=== PATIENT | male | born 1960 | race American Indian/Alaskan Native ===

== ENCOUNTER 2019-04-27 08:40 | Inpatient (IN) | payer MEDICARE ==
[2019-04-27] MEDS ORDERED: ASPIRIN PO ONE (08:47)
[2019-04-27 09:21] LABS: Basophils # (Auto) 0.1 K/mm3 (0.0-0.1); Basophils % (Auto) 0.9 % (0.0-1.8); Eosinophils # (Auto) 0.2 K/mm3 (0.0-0.4); Eosinophils % (Auto) 2.7 % (0.0-4.3); Hematocrit 39.5 % (35.5-45.6); Hemoglobin 13.5 gm/dl (11.8-15.2); Lymphocytes # (Auto) 1.9 K/mm3 (1.2-5.4); Lymphocytes % (Auto) 33.2 % (13.4-35.0); Mean Corpuscular HGB Conc 34 % (32-34); Mean Corpuscular Volume 99 fl (84-94); Monocytes # (Auto) 0.6 K/mm3 (0.0-0.8); Monocytes % (Auto) 11.4 % (0.0-7.3); Platelet Count 198 K/mm3 (140-440); Red Blood Count 4.01 M/mm3 (3.65-5.03); Red Cell Distribution Width 14.3 % (13.2-15.2)
[2019-04-27 09:38] LABS: BUN/Creatinine Ratio 12; Blood Urea Nitrogen 13 mg/dL (9-20); Calcium 9.3 mg/dL (8.4-10.2); Hemolysis Index 10
--- NOTE | 2019-04-27 10:32 | XRay Report ---
PROCEDURE: XR CHEST 1V AP TECHNIQUE: Chest, one view HISTORY: Chest Pain COMPARISON: 07/12/2018 FINDINGS: The heart size is normal. There is no pulmonary vascular congestion seen. Mediastinal contours are normal. Lungs are clear. There is no pleural effusion seen. There is no pneumothorax seen. IMPRESSION: No acute abnormality identified. This document is electronically signed by Ilana Camp MD., April 27 2019 10:30:49 AM ET
[2019-04-27] MEDS ORDERED: NITRO-BID 2% TP ONE (10:42)
[2019-04-27] MEDS ORDERED: ZOFRAN IV ONE (10:42)
[2019-04-27] MEDS ORDERED: SUBLIMAZE IV ONE (10:42)
[2019-04-27] MEDS ORDERED: CATAPRES PO ONE (10:45)
--- NOTE | 2019-04-27 10:48 | Emergency Department Report ---
HPI - General Chief Complaint: Chest Pain Time Seen by Provider: 04/27/19 10:32 - HPI HPI: Room 6 The patient is a 59-year-old male presenting with chief complaint of chest pain. The patient states for the past 2-3 days he's had intermittent left-sided chest pain described as sharp in nature. The patient states he has shortness of breath associated with this chest pain but denies nausea/vomiting or diaphoresis. The patient states last night at approximately 23:00 he also developed numbness of the left upper extremity and left lower extremity. Patient denies weakness. Patient currently gets this chest pain score of 7/10. Patient has a history of coronary artery disease and had cardiac stents placed in 2012 and 2017. Location: [See above] Duration: [See above] Quality: [See above] Severity: [See above] Modifying factors: [see above] Context: [see above] Mode of transportation: [not driving] ED Past Medical Hx - Past Medical History Hx Hypertension: Yes Hx Heart Attack/AMI: Yes Additional medical history: Elevated cholesterol - Surgical History Hx Coronary Stent: Yes (2012, 2017) - Family History Family history: no significant - Social History Smoking Status: Current Some Day Smoker (cigars) Substance Use Type: Alcohol, Marijuana - Medications Home Medications: Home Medications Medication Instructions Recorded Confirmed Last Taken Type ALBUTEROL Inhaler (OR & NICU) 2 puff IH QID PRN #1 inhalation 05/07/07/11/18 Unknown Rx [ProAir HFA Inhaler] Furosemide [Lasix TAB] 20 mg PO QDAY #14 tablet 05/07/16 07/11/18 Unknown Rx Nicotine [Habitrol] 14 mg TD QDAY #30 patch 05/07/16 07/11/18 Unknown Rx Aspirin EC 81 mg PO QDAY #30 tablet. 07/13/18 Unknown Rx AtorvaSTATin [Lipitor] 40 mg PO QHS #30 tablet 07/13/18 Unknown Rx Carvedilol [Coreg] 3.125 mg PO BID #60 tablet 07/13/18 Unknown Rx Clopidogrel [Plavix] 75 mg PO QDAY #30 tablet 07/13/18 Unknown Rx Famotidine [Pepcid] 20 mg PO BID #60 tablet 07/13/18 Unknown Rx Lisinopril [Zestril TAB] 10 mg PO BID #60 tablet 07/13/18 Unknown Rx amLODIPine [Norvasc] 5 mg PO QDAY #30 tablet 07/13/18 Unknown Rx ED Review of Systems ROS: Stated complaint: CHEST PAIN Other details as noted in HPI Constitutional: denies: diaphoresis Eyes: denies: eye pain ENT: denies: throat pain Respiratory: shortness of breath Cardiovascular: chest pain Endocrine: no symptoms reported Gastrointestinal: denies: nausea, vomiting Genitourinary: denies: dysuria Musculoskeletal: denies: back pain Neurological: paresthesias. denies: headache Physical Exam - Physical Exam Vital Signs: Vital Signs 04/27/19 04/27/19 08:42 10:00 Temperature 98.3 F 98.6 F Pulse Rate 78 57 L Respiratory 22 18 Rate Blood Pressure 194/111 Blood Pressure 165/103 [Right] O2 Sat by Pulse 98 Oximetry Physical Exam: GENERAL: The patient is well-developed well-nourished male lying on stretcher not appearing to be in acute distress. [] HEENT: Normocephalic. Atraumatic. Extraocular motions are intact. Patient has moist mucous membranes. NECK: Supple. Trachea midline CHEST/LUNGS: Clear to auscultation. There is no respiratory distress noted. HEART/CARDIOVASCULAR: Regular. There is no tachycardia. There is no gallop rub or murmur. ABDOMEN: Abdomen is soft, nontender. Patient has normal bowel sounds. There is no abdominal distention. SKIN: There is no rash. There is no edema. There is no diaphoresis. NEURO: The patient is awake, alert, and oriented. The patient is cooperative. Cranial nerves II through XII grossly intact. Left lower extremity drifts and under 5 seconds but does not touch the bed. The patient has normal speech MUSCULOSKELETAL: There is no evidence of acute injury. NIHSS= 2 LOC a. Alert= 0 Not alert but arousable to minor stimuli=1 Not alert requires repeated or strong stimuli to move= 2 Responds only reflex motor or unresponsive=3 b. asks month and age answers both correctly= 0 answers one correctly= 1 answers neither correctly= 2 Best Gaze normal= 0 abnormal in one or both but forced deviation or total paresis absent= 1 forced deviation or total gaze paresis= 2 Visual no visual loss= 0 partial hemianopia= 1 complete hemianopia= 2 bilateral hemianopia= 3 Facial Palsy normal= 0 minor paralysis= 1 partial paralysis= 2 complete paralysis= 3 Motor Arm no drift= 0 drift before 10 secs but doesnt hit bed= 1 some effort against gravity= 2 no effort against gravity= 3 no movement= 4 Motor leg no drift= 0 (+)drift before 5 secs but doesnt hit bed= 1 drifts to bed before 5 secs= 2 no effort against gravity= 3 no movement= 4 Limb ataxia absent=0 present in one limb= 1 present in two limbs= 2 Sensory normal= 0 (+)mild sensory loss= 1 severe (unaware of being touched)= 2 Best language mild/some loss of fluency= 1 severe= 2 mute= 3 Dysarthria normal= 0 slurs some words= 1 severe/unintelligible= 2 Extinction and Inattention no abnormality= 0 visual, tactile, auditory or personal inattention= 1 profound (doesnt recognize own hand or orients to only one side= 2 ED Course Vital Signs 04/27/19 04/27/19 08:42 10:00 Temperature 98.3 F 98.6 F Pulse Rate 78 57 L Respiratory 22 18 Rate Blood Pressure 194/111 Blood Pressure 165/103 [Right] O2 Sat by Pulse 98 Oximetry ED Medical Decision Making - Lab Data Result diagrams: 04/27/19 08:56 04/27/19 08:56 Laboratory Tests 04/27/19 04/27/19 08:56 08:56 WBC 5.6 RBC 4.01 Hgb 13.5 Hct 39.5 MCV 99 H MCH 34 H MCHC 34 RDW 14.3 Plt Count 198 Lymph % (Auto) 33.2 Heard % (Auto) 11.4 H Eos % (Auto) 2.7 Baso % (Auto) 0.9 Lymph # 1.9 Heard # 0.6 Eos # 0.2 Baso # 0.1 Seg Neutrophils % 51.8 Seg Neutrophils # 2.9 Sodium 141 Potassium 4.3 Chloride 105.8 Carbon Dioxide 26 Anion Gap 14 BUN 13 Creatinine 1.1 Estimated GFR > 60 BUN/Creatinine Ratio 12 Glucose 87 Calcium 9.3 Troponin T < 0.010 - EKG Data -: EKG Interpreted by Al EKG shows normal: sinus rhythm Rate: normal - EKG Data When compared to previous EKG there are: changes noted Interpretation: nonspecific ST-T wave amira (T-wave inversions in leads 2, 3, aVF, biphasic T-wave in lead V6) - Radiology Data Radiology results: report reviewed (chest x-ray, CT chest, CT head), image reviewed (chest x-ray, CT head, CT chest) interpreted by me: Chest x-ray-no focal infiltrates, no pneumothorax [address] [address] XRay Report Signed Patient: SARA LUZ III MR#: [id number] : 1960 Acct:[id number] Age/Sex: 59 / M ADM Date: 04/27/19 Loc: ED Attending Dr: Ordering Physician: GENI DILLARD MD Date of Service: 04/27/19 Pro cedure(s): XR chest 1V ap Accession Number(s): [id number] cc: GENI DILLARD MD Fluoro Time In Minutes: PROCEDURE: XR CHEST 1V AP TECHNIQUE: Chest, one view HISTORY: Chest Pain COMPARISON: 07/12/2018 FINDINGS: The heart size is normal. There is no pulmonary vascular congestion seen. Mediastinal contours are normal. Lungs are clear. There is no pleural effusion seen. There is no pneumothorax seen. IMPRESSION: No acute abnormality identified. This document is electronically signed by Ilana Camp MD., April 27 2019 10:30:49 AM ET Transcribed By: [facility] Dictated By: ILANA CAMP MD Electronically Authenticated By: ILANA CAMP MD Signed Date/Time: 04/27/191031 DD/ 7 TD/TT: 04/27/[address] [address] Cat Scan Report Signed Patient: SARA LUZ III MR#: [id number] : 1960 Acct:[id number] Age/Sex: 59 / M ADM Date: 04/27/19 Loc: ED Attending Dr: Ordering Physician: GENI DILLARD MD Date of Service: 04/27/19 Procedure(s): CT angio chest Accession Number(s): [id number] cc: GENI DILLARD MD PROCEDURE: CT ANGIO CHEST TECHNIQUE: Computerized tomographic angiography of the chest was performed after the IV injection of iodinated nonionic contrast including image processing. The image data was postprocessed using 2-dimensional multiplanar reformatted (MPR) and 3-dimensional (MIP and/or volume rendered) techniques. Automated exposure control, adjustment of mA and/or kV according to patient size, or iterative reconstruction dose optimization techniques were utilized. HISTORY: chest pain with left-sided numbness FINDINGS: Contrast- enhanced CT angiography of the chest was performed following the intravenous administration of iodinated contrast. Sagittal and coronal MIP three-dimensional reformatted images were generated. These images demonstrate no CT evidence of pulmonary thromboembolic disease. There is no aortic dissection. The ascending thoracic aorta is mildly dilated at 3.8 cm. There is COPD. There is no consolidative pulmonary infiltrate. There is no pleural or pericardial effusion. There is a left renal cyst 2.5 cm. There is a left adrenal nodule, 0.9 cm, likely adenoma. The gallbladder is unremarkable. IMPRESSION: No CT evidence of pulmonary thromboembolic disease All CT scans at this location are performed using dose modulation techniques as appropriate to a performed exam including the following: automated exposure control, adjustment of the mA and/or kV according to patient size (this includes techniques or standardized protocols for targeted exams where dose is matched to indication/reason for exam, i.e.extremities or head; use of imaging [id number] This document is electronically signed by Shaun Kincaid MD., April 27 2019 12:22:52 PM ET Transcribed By: MANJINDER Dictated By: SHAUN KINCAID MD Electronically Authenticated By: SHAUN KINCAID MD Signed Date/Time: 04/27/19 1224 DD/ 25 TD/TT: 04/27/[address] [address] Cat Scan Report Signed Patient: SARA LUZ III MR#: [id number] : 0 1960 Acct:[id number] Age/Sex: 59 / M ADM Date: 04/27/19 Loc: ED Attending Dr: Ordering Physician: GENI DILLARD MD Date of Service: 04/27/19 Procedure(s): CT head/brain wo con Accession Number(s): [id number] cc: GENI DILLARD MD PROCEDURE: CT HEAD/BRAIN WO CON TECHNIQUE: Computerized tomography of the head was performed without contrast material. CT DOSE LENGTH PRODUCT: 1048.3 mGycm HISTORY: left-sided numbness COMPARISONS: None . FINDINGS: Unenhanced CT of the brain was performed and demonstrates no acute intracranial hemorrhage, extra- axial fluid collection, midline shift or mass effect. The ventricles and basal cisterns are not effaced. No acute infarct is seen. MRI may be considered if patient has persistent symptomatology. The mastoid air cells and middle ears appear clear. There is no evidence of acute sinusitis. IMPRESSION: No acute intracranial hemorrhage All CT scans at this location are performed using dose modulation techniques as appropriate to a performed exam including the following: automated exposure control, adjustment of the mA and/or kV according to patient size (this includes techniques or standardized protocols for targeted exams where dose is matched to indication/reason for exam, i.e.extremities or head; use of imaging [id number] This document is electronically signed by Shaun Kincaid MD., April 27 2019 12:24:54 PM ET Transcribed By: MANJINDER Dictated By: SHAUN KINCAID MD Electronically Authenticated By: SHAUN KINCAID MD Signed Date/Time: 04/27/19 1226 DD/ 1126 TD/TT: 04/27/19 1127 - Differential Diagnosis ACS, pericarditis, PE, aortic dissection, CVA, hypertensive urgency Critical care attestation.: If time is entered above; I have spent that time in minutes in the direct care of this critically ill patient, excluding procedure time. ED Disposition Clinical Impression: Chest pain, Hypertensive urgency Disposition: -09 OP ADMIT IP TO THIS HOSP Is pt being admited?: Yes Does the pt Need Aspirin: Yes Condition: Fair Instructions: Chest Pain (ED) Referrals: CORNELIA TOBIAS MD [Primary Care Provider] - 3-5 Days Time of Disposition: 13:05 (hospitalist paged (Dr Owens))
--- NOTE | 2019-04-27 12:24 | Cat Scan Report ---
PROCEDURE: CT ANGIO CHEST TECHNIQUE: Computerized tomographic angiography of the chest was performed after the IV injection of iodinated nonionic contrast including image processing. The image data was postprocessed using 2-di mensional multiplanar reformatted (MPR) and 3-dimensional (MIP and/or volume rendered) techniques. Au tomated exposure control, adjustment of mA and/or kV according to patient size, or iterative reconstr uction dose optimization techniques were utilized. HISTORY: chest pain with left-sided numbness FINDINGS: Contrast-enhanced CT angiography of the chest was performed following the intravenous admin istration of iodinated contrast. Sagittal and coronal MIP three-dimensional reformatted images were g enerated. These images demonstrate no CT evidence of pulmonary thromboembolic disease. There is no aortic disse ction. The ascending thoracic aorta is mildly dilated at 3.8 cm. There is COPD. There is no consolidative pulmonary infiltrate. There is no pleural or pericardial eff usion. There is a left renal cyst 2.5 cm. There is a left adrenal nodule, 0.9 cm, likely adenoma. The gallbladder is unremarkable. IMPRESSION: No CT evidence of pulmonary thromboembolic disease All CT scans at this location are performed using dose modulation techniques as appropriate to a perf ormed exam including the following: automated exposure control, adjustment of the mA and/or kV accord ing to patient size (this includes techniques or standardized protocols for targeted exams where dose is matched to indication/reason for exam, i.e.extremities or head; use of imaging [id number] This document is electronically signed by Shaun Kincaid MD., April 27 2019 12:22:52 PM ET
--- NOTE | 2019-04-27 12:26 | Cat Scan Report ---
PROCEDURE: CT HEAD/BRAIN WO CON TECHNIQUE: Computerized tomography of the head was performed without contrast material. CT DOSE LENGTH PRODUCT: 1048.3 mGycm HISTORY: left-sided numbness COMPARISONS: None . FINDINGS: Unenhanced CT of the brain was performed and demonstrates no acute intracranial hemorrhage, extra-axial fluid collection, midline shift or mass effect. The ventricles and basal cisterns are no t effaced. No acute infarct is seen. MRI may be considered if patient has persistent symptomatology. The mastoid air cells and middle ears appear clear. There is no evidence of acute sinusitis. IMPRESSION: No acute intracranial hemorrhage All CT scans at this location are performed using dose modulation techniques as appropriate to a perf ormed exam including the following: automated exposure control, adjustment of the mA and/or kV accord ing to patient size (this includes techniques or standardized protocols for targeted exams where dose is matched to indication/reason for exam, i.e.extremities or head; use of imaging [id number] This document is electronically signed by Shaun Kincaid MD., April 27 2019 12:24:54 PM ET
--- NOTE | 2019-04-27 13:08 | History and Physical Report ---
History of Present Illness Chief complaint: My chest keeps hurting History of present illness: 59 YO Male with HTN, HLD, [place], CAD S/P Stent Placement presents to ED for evaluation. Pt states that he has experienced pain in his chest over the past 3 days with worsening symptoms over the past 2 days with increased frequency over the same time frame. Pain initially lasted for several seconds, but now lasts up to 5 minutes in duration. Pt states that pain is 7/10, substernal, sharp, intermittent in nature, radiating to the left arm, not worsened with exertion, not relieved with rest. Pt acknowledges shortness of breath, decreased exercise tolerance, dypsnea with exertion, as well as diaphoresis. Pt transported to [facility] via private vehicle. Pt seen and evaluated in ED and found to have Angina, as well as symptoms consistent with CHF Decompensation. Pt admitted to telemetry and initiated on Chest pain protocol. Cardiology consulted in ED. No prior admission for review. All listed medication reconciled at time of admission. Pt denies fever, chills, palpitations, NVD, Trauma, BRBPR, Productive cough, skin rash, unilateral leg swelling, calf pain, individual/family history of DVT/PE/ Blood Clotting Disorder. Past History Past Medical History: acute FL, CAD, hypertension, hyperlipidemia Past Surgical History: Other (Cardiac stent placement.) Social history: . denies: smoking, alcohol abuse Family history: CAD, hypertension Medications and Allergies Allergies Allergy/AdvReac Type Severity Reaction Status Date / Time No Known Allergies Allergy Verified 04/27/19 08:41 Home Medications Medication Instructions Recorded Confirmed Last Taken Type ALBUTEROL Inhaler (OR & NICU) 2 puff IH QID PRN #1 inhalation 05/07/16 04/27/19 2 Weeks Ago Rx [ProAir HFA Inhaler] ~04/13/19 Furosemide [Lasix TAB] 20 mg PO QDAY #14 tablet 05/07/16 04/27/19 2 Weeks Ago Rx ~04/13/19 Nicotine [Habitrol] 14 mg TD QDAY #30 patch 05/07/16 04/27/19 2 Weeks Ago Rx ~04/13/19 10 mg Aspirin EC 81 mg PO QDAY #30 tablet. 07/13/18 04/27/19 2 Weeks Ago Rx ~04/13/19 AtorvaSTATin [Lipitor] 40 mg PO QHS #30 tablet 07/13/18 04/27/19 2 Weeks Ago Rx ~04/13/19 Carvedilol [Coreg] 3.125 mg PO BID #60 tablet 07/13/18 04/27/19 2 Weeks Ago Rx ~04/13/19 Clopidogrel [Plavix] 75 mg PO QDAY #30 tablet 07/13/18 04/27/19 2 Weeks Ago Rx ~04/13/19 Famotidine [Pepcid] 20 mg PO BID #60 tablet 07/13/18 04/27/19 2 Weeks Ago Rx ~04/13/19 Lisinopril [Zestril TAB] 10 mg PO BID #60 tablet 07/13/18 04/27/19 2 Weeks Ago Rx ~04/13/19 amLODIPine [Norvasc] 5 mg PO QDAY #30 tablet 07/13/18 04/27/19 2 Weeks Ago Rx ~04/13/19 Review of Systems Constitutional: no weight loss, no weight gain, no fever, no chills Ears, nose, mouth and throat: no ear pain, no ear discharge, no decreased hearing, no nose pain, no nasal discharge, no sinus pressure Cardiovascular: chest pain, shortness of breath, dyspnea on exertion, decreased exercise tolerance, no rapid/irregular heart beat, no edema, no syncope Respiratory: no cough, no cough with sputum, no excessive sputum, no hemoptysis Gastrointestinal: no nausea, no vomiting, no diarrhea, no constipation Genitourinary Male: no hematuria, no flank pain, no discharge, no urinary frequency, no urinary hesitancy Rectal: no pain, no incontinence, no bleeding Musculoskeletal: no neck stiffness, no neck pain, no shooting arm pain, no arm numbness/tingling, no low back pain, no shooting leg pain, no leg n umbness/tingling Integumentary: no rash, no pruritis, no redness, no sores, no wounds, no jaundice Neurological: no transient paralysis, no paralysis, no weakness, no parathesias, no numbness, no tingling, no seizures Psychiatric: no anxiety, no memory loss, no sleep disturbances, no hypersomnia, no change in appetite, no change in libido, no suicidal ideation, no disorientation Endocrine: no cold intolerance, no heat intolerance, no polyphagia, no excessive thirst, no polydipsia Hematologic/Lymphatic: no easy bruising, no easy bleeding, no lymphadenopathy, no lymphedema Allergic/Immunologic: no urticaria, no allergic rhinitis, no persistent infections, no anaphylaxis Exam - Constitutional Vitals: Temp Pulse Resp BP Pulse Ox 98.6 F 59 L 18 147/80 100 04/27/19 10:00 04/27/19 13:04 04/27/19 13:04 04/27/19 13:04 04/27/19 13:04 General appearance: Present: mild distress - EENT Eyes: Present: PERRL ENT: hearing intact, clear oral mucosa - Neck Neck: Present: supple, normal ROM - Respiratory Respiratory effort: normal Respiratory: bilateral: CTA - Cardiovascular Heart Sounds: Present: S1 & S2. Absent: rub, click - Extremities Extremities: pulses symmetrical, No edema Peripheral Pulses: within normal limits - Abdominal General gastrointestinal: Present: soft, non-tender, non-distended, normal bowel sounds Male genitourinary: Present: normal - Integumentary Integumentary: Present: clear, warm, dry - Musculoskeletal Musculoskeletal: gait normal, strength equal bilaterally - Psychiatric Psychiatric: appropriate mood/affect, intact judgment & insight - Neurologic Neurologic: CNII-XII intact, moves all extremities Results - Labs CBC & Chem 7: 04/27/19 08:56 04/27/19 08:56 Labs: Abnormal lab results 04/27/19 Range/Units 08:56 MCV 99 H (84-94) fl MCH 34 H (28-32) pg Mitchell % (Auto) 11.4 H (0.0-7.3) % Assessment and Plan - Patient Problems (1) Diastolic CHF Current Visit: Yes Status: Acute Qualifiers: Heart failure chronicity: acute Qualified Code(s): I50.31 - Acute diastolic (congestive) heart failure Plan to address problem: Admit to telemetry, echo, cardiology consulted in ED, strict I/O, daily weight, diuresis, monitor uop q shift, afterload reduction, BNP, supplemental oxygen, pulse oximetry. (2) Angina at rest Current Visit: Yes Status: Suspected Plan to address problem: Admit to telemetry, Echo, BNP, cardiology consulted in ED, Echo, strict I/O, daily weight, thyroid panel, magnesium, stress test, d dimer, chest x ray, blood pressure control. (3) HTN (hypertension) Current Visit: Yes Status: Acute Qualifiers: Hypertension type: essential hypertension Qualified Code(s): I10 - Essential (primary) hypertension Plan to address problem: monitor bp q shift, (4) HLD (hyperlipidemia) Current Visit: Yes Status: Acute Qualifiers: Hyperlipidemia type: mixed hyperlipidemia Qualified Code(s): E78.2 - Mixed hyperlipidemia Plan to address problem: statin therpay, lipid panel, low cholesterol diet. risk factor reduction. (5) CAD (coronary artery disease) Current Visit: Yes Status: Acute Qualifiers: Associated angina: with stable angina Plan to address problem: lipid panel, statin therapy, low cholesterol diet, risk factor reduction, DAPT (6) DVT prophylaxis Current Visit: Yes Status: Acute Plan to address problem: SCD to BLE while in bed, patient ambulating
[2019-04-27] MEDS ORDERED: BABY ASPIRIN PO STA (13:23)
[2019-04-27] MEDS ORDERED: ZOFRAN IV PRN (14:00)
[2019-04-27] MEDS ORDERED: SODIUM CHLORIDE FLUSH SYRINGE 10 ML IV PRN ×2 (14:00)
[2019-04-27] MEDS ORDERED: TYLENOL PO PRN (14:00)
[2019-04-27] MEDS ORDERED: PROVENTIL IH PRN (14:00)
[2019-04-27] MEDS ORDERED: NITROSTAT SL PRN (14:00)
[2019-04-27] MEDS ORDERED: MORPHINE IV PRN (14:00)
[2019-04-27] MEDS: HABITROL TD SCH (14:47)
[2019-04-27] MEDS: SODIUM CHLORIDE FLUSH SYRINGE 10 ML IV SCH (21:25)
[2019-04-27] MEDS: ZESTRIL PO SCH (21:25)
[2019-04-27] MEDS: COREG PO SCH (21:25)
[2019-04-27] MEDS: PEPCID PO SCH (21:25)
[2019-04-27] MEDS ORDERED: PEPCID PO SCH (22:00)
--- NOTE | 2019-04-28 11:31 | Event Note ---
Date: 04/28/19 Please refer to patient's regular cardiology group [facility] for consultation and further management.
[2019-04-28] MEDS ORDERED: LEXISCAN IV ONE ×2 (11:57→11:59)
[2019-04-28] MEDS: PLAVIX PO SCH (13:23)
[2019-04-28] MEDS: PEPCID PO SCH ×2 (13:23→21:26)
[2019-04-28] MEDS: COREG PO SCH ×2 (13:23→21:26)
[2019-04-28] MEDS: ZESTRIL PO SCH ×2 (13:23→21:26)
[2019-04-28] MEDS: NORVASC PO SCH (13:24)
[2019-04-28] MEDS: LASIX IV SCH (13:25)
[2019-04-28] MEDS: HABITROL TD SCH (13:25)
[2019-04-28] MEDS: SODIUM CHLORIDE FLUSH SYRINGE 10 ML IV SCH ×2 (13:25→21:26)
--- NOTE | 2019-04-28 14:53 | Consultation ---
History of Present Illness Consult date: 04/28/19 Requesting physician: MARIELA MIRANDA Consult reason: chest pain History of present illness: The patient is a 59-year-old male with a past medical history of CAD s/p PCI in [place] in 2012 and PCI at [facility] in 06/2018, hypertension, hyperlipidemia, tobacco use. He has been seen by our practice on prior hospitalization but has admittedly not been compliant with medications or OP follow up due to lack of insurance in the past although he now has insurance. He presented with complaints of chest pain for 3 days prior to arrival. He describes his chest pain as an intermittent, nonexertional, nonradiating, midsternal stabbing pain with no clear aggravating or alleviating factors. The pain is associated with some SOB. He denies any palpitations, n/v, diaphoresis, dizziness or syncope. In 06/2018, pt presented to [facility] with NSTEMI and underwent LHC on 07/11/2018 with PCI of OM2 with DENISE, left main patent, LAD prox 40%, RCA ectatic, large patent PLV 40%, normal LV function. Echo done 07/11/2018 showed EF 50-55%, mild LVH, impaired relaxation. Pt was discharged home on ASA, plavix, lipitor, coreg, lisinopril, amlodipine. He took these medications for approx 3 months before he ran out of pills and has not taken any prescription medications since. Pt reports that he does still smoke cigars daily. Past History Past Medical History: acute [place], CAD, hypertension, hyperlipidemia Past Surgical History: Other (Cardiac stent placement.) Social history: . denies: smoking, alcohol abuse Family history: CAD, hypertension Medications and Allergies Allergies Allergy/AdvReac Type Severity Reaction Status Date / Time No Known Allergies Allergy Verified 04/27/19 08:41 Home Medications Medication Instructions Recorded Confirmed Last Taken Type ALBUTEROL Inhaler (OR & NICU) 2 puff IH QID PRN #1 inhalation 05/07/16 04/27/19 2 Weeks Ago Rx [ProAir HFA Inhaler] ~04/13/19 Furosemide [Lasix TAB] 20 mg PO QDAY #14 tablet 05/07/16 04/27/19 2 Weeks Ago Rx ~04/13/19 Nicotine [Habitrol] 14 mg TD QDAY #30 patch 05/07/16 04/27/19 2 Weeks Ago Rx ~04/13/19 10 mg Aspirin EC 81 mg PO QDAY #30 tablet. 07/13/18 04/27/19 2 Weeks Ago Rx ~04/13/19 AtorvaSTATin [Lipitor] 40 mg PO QHS #30 tablet 07/13/18 04/27/19 2 Weeks Ago Rx ~04/13/19 Carvedilol [Coreg] 3.125 mg PO BID #60 tablet 07/13/18 04/27/19 2 Weeks Ago Rx ~04/13/19 Clopidogrel [Plavix] 75 mg PO QDAY #30 tablet 07/13/18 04/27/19 2 Weeks Ago Rx ~04/13/19 Famotidine [Pepcid] 20 mg PO BID #60 tablet 07/13/18 04/27/19 2 Weeks Ago Rx ~04/13/19 Lisinopril [Zestril TAB] 10 mg PO BID #60 tablet 07/13/18 04/27/19 2 Weeks Ago Rx ~04/13/19 amLODIPine [Norvasc] 5 mg PO QDAY #30 tablet 07/13/18 04/27/19 2 Weeks Ago Rx ~04/13/19 Active Meds: Active Medications Acetaminophen (Tylenol) 650 mg PO Q4H PRN PRN Reason: Pain MILD(1-3)/Fever >100.5/SKY Albuterol (Proventil) 2.5 mg IH Q4HRT PRN PRN Reason: Shortness Of Breath Amlodipine Besylate (Norvasc) 5 mg PO QDAY [facility] Last Admin: 04/28/19 13:24 Dose: 5 mg Documented by: Atorvastatin Calcium (Lipitor) 40 mg PO QHS [facility] Last Admin: 04/27/19 21:25 Dose: 40 mg Documented by: Carvedilol (Coreg) 3.125 mg PO BID [facility] Last Admin: 04/28/19 13:23 Dose: 3.125 mg Documented by: Clopidogrel Bisulfate (Plavix) 75 mg PO QDAY [facility] Last Admin: 04/28/19 13:23 Dose: 75 mg Documented by: Famotidine (Pepcid) 20 mg PO BID [facility] Last Admin: 04/28/19 13:23 Dose: 20 mg Documented by: Furosemide (Lasix) 20 mg IV QDAY [facility] Last Admin: 04/28/19 13:25 Dose: 20 mg Documented by: Lisinopril (Zestril) 10 mg PO BID [facility] Last Admin: 04/28/19 13:23 Dose: 10 mg Documented by: Morphine Sulfate (Morphine) 2 mg IV Q4H PRN PRN Reason: Pain, Moderate (4-6) Nicotine (Habitrol) 14 mg TD QDAY [facility] Last Admin: 04/28/19 13:25 Dose: Not Given Documented by: Nitroglycerin (Nitrostat) 0.4 mg SL Q5M PRN PRN Reason: Chest Pain Ondansetron HCl (Zofran) 4 mg IV Q8H PRN PRN Reason: Nausea And Vomiting Sodium Chloride (Sodium Chloride Flush Syringe 10 Ml) 10 ml IV BID [facility] Last Admin: 04/28/19 13:25 Dose: 10 ml Documented by: Sodium Chloride (Sodium Chloride Flush Syringe 10 Ml) 10 ml IV PRN PRN PRN Reason: LINE FLUSH Review of Systems Constitutional: no weight loss, no weight gain, no fever, no chills, no sweats Ears, nose, mouth and throat: no ear pain, no nose pain, no sinus pressure, no sinus pain Cardiovascular: chest pain, shortness of breath, no orthopnea, no palpitations, no rapid/irregular heart beat, no edema, no syncope, no lightheadedness, no leg edema Respiratory: shortness of breath, no cough, no pain on inspiration Gastrointestinal: no abdominal pain, no nausea, no vomiting, no diarrhea, no constipation, no change in bowel habits Genitourinary Male: no dysuria, no hematuria, no flank pain, no discharge, no urinary frequency, no urinary hesitancy Musculoskeletal: no neck stiffness, no neck pain, no shooting arm pain, no arm numbness/tingling, no low back pain, no shooting leg pain Integumentary: no rash, no pruritis, no redness, no sores, no wounds Neurological: no head injury, no paralysis, no weakness, no parathesias, no numbness, no tingling, no seizures, no syncope Psychiatric: no anxiety Endocrine: no cold intolerance, no heat intolerance Hematologic/Lymphatic: no easy bruising, no easy bleeding Allergic/Immunologic: no urticaria, no wheezing Physical Examination Vital Signs Temp Pulse Resp BP 98.3 F 78 22 194/111 04/27/19 08:42 04/27/19 08:42 04/27/19 08:42 04/27/19 08:42 General appearance: no acute distress HEENT: Positive: PERRL, Normocephaly, Mucus Membranes Moist Neck: Positive: neck supple, trachea midline Cardiac: Positive: Reg Rate and Rhythm, S1/S2 Lungs: Positive: clear to auscultation Neuro: Positive: Grossly Intact Abdomen: Positive: Soft. Negative: Tender Male genitourinary: Negative: tender Skin: Negative: Rash, Wound Musculoskeletal: No Pain Extremities: Absent: edema Results 04/27/19 08:56 04/27/19 08:56 - Imaging and Cardiology Echo: report reviewed (07/11/2018 showed EF 50-55%, mild LVH, impaired relaxation.) Cardiac cath: report reviewed ([facility] on 07/11/2018 with PCI of OM2 with DENISE, left main patent, LAD prox 40%, RCA ectatic, large patent PLV 40%, normal LV function. ) EKG: report reviewed, image reviewed EKG interpretations - Telemetry EKG Rhythm: Sinus Rhythm - EKG Sinus rhythms and dysrhythmias: sinus rhythm Assessment and Plan Pt underwent lexiscan MPI stress test today which was negative for ischemia, EF 36%. Will f/u echo. Cont present cardiac management. The patient has been seen in conjunction with Dr. Arleen Danielson who agrees with the assessment and plan of care. - Patient Problems (1) Chest pain Current Visit: Yes Status: Acute (2) CAD (coronary artery disease) Current Visit: Yes Status: Chronic Qualifiers: Associated angina: with stable angina (3) Stented coronary artery Current Visit: Yes Status: Chronic (4) HTN (hypertension) Current Visit: Yes Status: Chronic Qualifiers: Hypertension type: essential hypertension Qualified Code(s): I10 - Essential (primary) hypertension (5) HLD (hyperlipidemia) Current Visit: Yes Status: Chronic Qualifiers: Hyperlipidemia type: mixed hyperlipidemia Qualified Code(s): E78.2 - Mixed hyperlipidemia (6) Tobacco use Current Visit: Yes Status: Chronic (7) Medical non-compliance Current Visit: Yes Status: Chronic
--- NOTE | 2019-04-28 16:06 | Progress Note ---
Assessment and Plan Assessment and plan: 59M who pw cp and sob acute on chronic Diastolic CHF and CP cont lasix, dw cardiology -stress test neg, awaiting echo, cardiology input appreciated HTN (hypertension) cont bp meds HLD (hyperlipidemia) statins DVT prophylaxis SCD to BLE while in bed, patient ambulating History Interval history: Review of systems Constitutional: No fevers, no malaise, no joint pains CVS: No chest pain, orthopnea is resolving GI: No abdominal pain, no diarrhea, no vomiting, no constipation Respiratory: no wheezing, no coughing Hospitalist Physical - Physical exam Narrative exam: General.: Appears well, no distress, nontoxic HEENT: Moist mucous membranes, extraocular muscles intact, no lymphadenopathy Neck: supple Cardiac: S1-S2 heard Lungs: Decreased air entry in bases Abdomen: soft , nontender, nondistended, bowel sounds positive Extremities: no edema clubbing or cyanosis Skin: no rash or lesions Neurologic: no gross focal deficits Psych: calm, and cooperative - Constitutional Vitals: Temp Pulse Resp BP Pulse Ox 98.0 F 56 L 18 144/91 99 04/28/19 08:51 04/28/19 08:51 04/28/19 08:51 04/28/19 12:09 04/28/19 14:21 General appearance: Present: no acute distress Results - Labs CBC & Chem 7: 04/27/19 08:56 04/27/19 08:56 Labs: Laboratory Last Values WBC 5.6 K/mm3 (4.5-11.0) 04/27/19 08:56 RBC 4.01 M/mm3 (3.65-5.03) 04/27/19 08:56 Hgb 13.5 gm/dl (11.8-15.2) 04/27/19 08:56 Hct 39.5 % (35.5-45.6) 04/27/19 08:56 MCV 99 fl (84-94) H 04/27/19 08:56 MCH 34 pg (28-32) H 04/27/19 08:56 MCHC 34 % (32-34) 04/27/19 08:56 RDW 14.3 % (13.2-15.2) 04/27/19 08:56 Plt Count 198 K/mm3 (140-440) 04/27/19 08:56 Lymph % (Auto) 33.2 % (13.4-35.0) 04/27/19 08:56 [place] % (Auto) 11.4 % (0.0-7.3) H 04/27/19 08:56 Eos % (Auto) 2.7 % (0.0-4.3) 04/27/19 08:56 Baso % (Auto) 0.9 % (0.0-1.8) 04/27/19 08:56 Lymph # 1.9 K/mm3 (1.2-5.4) 04/27/19 08:56 [place] # 0.6 K/mm3 (0.0-0.8) 04/27/19 08:56 Eos # 0.2 K/mm3 (0.0-0.4) 04/27/19 08:56 Baso # 0.1 K/mm3 (0.0-0.1) 04/27/19 08:56 Seg Neutrophils % 51.8 % (40.0-70.0) 04/27/19 08:56 Seg Neutrophils # 2.9 K/mm3 (1.8-7.7) 04/27/19 08:56 Sodium 141 mmol/L (137-145) 04/27/19 08:56 Potassium 4.3 mmol/L (3.6-5.0) 04/27/19 08:56 Chloride 105.8 mmol/L (98-107) 04/27/19 08:56 Carbon Dioxide 26 mmol/L (22-30) 04/27/19 08:56 14 mmol/L 04/27/19 08:56 BUN 13 mg/dL (9-20) 04/27/19 08:56 1.1 mg/dL (0.8-1.5) 04/27/19 08:56 Estimated GFR > 60 ml/min 04/27/19 08:56 12 % 04/27/19 08:56 Glucose 87 mg/dL (75-100) 04/27/19 08:56 Calcium 9.3 mg/dL (8.4-10.2) 04/27/19 08:56 < 0.010 ng/mL (0.00-0.029) 04/27/19 16:12 NT-Pro-B Natriuret Pep 968.1 pg/mL (0-900) H 04/27/19 12:53 Active Medications - Current Medications Current Medications: Generic Name Dose Route Start Last Admin Trade Name Freq PRN Reason Stop Dose Admin Acetaminophen 650 mg 04/27/19 14:00 Tylenol PO Q4H PRN Pain MILD(1-3)/Fever >100.5/SKY Albuterol 2.5 mg 04/27/19 14:00 Proventil IH Q4HRT PRN Shortness Of Breath Amlodipine Besylate 5 mg 04/28/19 10:00 04/28/19 13:24 Norvasc PO 5 mg QDAY [facility] Administration Aspirin 81 mg 04/29/19 10:00 Baby Aspirin PO QDAY [facility] Atorvastatin Calcium 40 mg 04/27/19 22:00 04/27/19 21:25 Lipitor PO 40 mg QHS [facility] Administration Carvedilol 3.125 mg 04/27/19 22:00 04/28/19 13:23 Coreg PO 3.125 mg BID [facility] Administration Clopidogrel Bisulfate 75 mg 04/28/19 10:00 04/28/19 13:23 Plavix PO 75 mg QDAY [facility] Administration Famotidine 20 mg 04/27/19 22:00 04/28/19 13:23 Pepcid PO 20 mg BID [facility] Administration Furosemide 20 mg 04/28/19 10:00 04/28/19 13:25 Lasix IV 20 mg QDAY [facility] Administration Lisinopril 10 mg 04/27/19 22:00 04/28/19 13:23 Zestril PO 10 mg BID [facility] Administration Morphine Sulfate 2 mg 04/27/19 14:00 Morphine IV Q4H PRN Pain, Moderate (4-6) Nicotine 14 mg 04/28/19 10:00 04/28/19 13:25 Habitrol TD Not Given QDAY [facility] Nitroglycerin 0.4 mg 04/27/19 14:00 Nitrostat SL Q5M PRN Chest Pain Ondansetron HCl 4 mg 04/27/19 14:00 Zofran IV Q8H PRN Nausea And Vomiting Sodium Chloride 10 ml 04/27/19 22:00 04/28/19 13:25 Sodium Chloride Flush Syringe 10 Ml IV 10 ml BID [facility] Administration Sodium Chloride 10 ml 04/27/19 14:00 Sodium Chloride Flush Syringe 10 Ml IV PRN PRN LINE FLUSH
--- NOTE | 2019-04-29 09:34 | Treadmill Report ---
NUCLEAR PERFUSION SCAN This was performed yesterday on 04/28/2019. REFERRING PHYSICIAN: Dr. Owens. PROTOCOL: The patient was brought to the stress lab in a postabsorptive state, given 10 mCi of technetium 99m at rest. The patient underwent rest imaging. The patient underwent Lexiscan stress test. At peak stress, the patient was given 26 mCi of technetium 99m. Shortly thereafter, the patient underwent stress imaging. Raw imaging reveals mild GI artifact, no significant motion artifact. SPECT imaging examined carefully in horizontal long axis, vertical long axis, short axis views, somewhat technically difficult study due to GI artifact, but grossly no evidence of significant fixed or reversible perfusion defects suggestive of prior infarction or ischemia. Gated wall motion reveals moderate global left ventricular hypokinesis with a calculated ejection fraction of 36%. No TID. CONCLUSIONS: 1. Technically difficult, but grossly probably normal myocardial perfusion scan without evidence of active ischemia or prior infarction. 2. Moderate global left ventricular hypokinesis with a calculated ejection fraction of 36%. 3. Lexiscan stress test reported separately. JOB# [id number] SBM/NTS
[2019-04-29] MEDS: ZESTRIL PO SCH (09:50)
[2019-04-29] MEDS: PLAVIX PO SCH (09:50)
[2019-04-29] MEDS: PEPCID PO SCH (09:50)
[2019-04-29] MEDS: HABITROL TD SCH (09:50)
[2019-04-29] MEDS: COREG PO SCH (09:51)
[2019-04-29] MEDS: NORVASC PO SCH (09:51)
[2019-04-29] MEDS: LASIX IV SCH (09:52)
[2019-04-29] MEDS: SODIUM CHLORIDE FLUSH SYRINGE 10 ML IV SCH (09:52)
[2019-04-29 09:53] VITALS: BP 137/90
[2019-04-29] MEDS ORDERED: BABY ASPIRIN PO SCH (10:00)
--- NOTE | 2019-04-29 13:12 | Discharge Summary ---
Providers - Providers Date of Admission: 04/27/19 14:32 Date of discharge: 04/29/19 Attending physician: MALENA GRANADOS 04/27/19 Consult to Cardiac Rehabilitation [CONS] Routine Reason For Exam: Phase I Primary care physician: CORNELIA TOBIAS Hospitalization Condition: Stable Hospital course: Patient is a 59-year-old man with a history of CAD s/p PCI in [place] in 2012, PCI at [facility] in 06/2018, hypertension, hyperlipidemia and tobacco use who presented to [facility] ED with sob and chest pains. In 06/2018, pt presented to [facility] with NSTEMI and underwent LHC on 07/11/2018 with PCI of OM2 with DENISE, left main patent, LAD prox 40%, RCA ectatic, large patent PLV 40%, normal LV function. Echo done 07/11/2018 showed EF 50-55%, mild LVH, impaired relaxation. Pt was discharged home on ASA, plavix, lipitor, coreg, lisinopril, amlodipine. He took these medications for approx 3 months before he ran out of pills and has not taken any prescription medications since. Pt reports that he does still smoke cigars daily. Discharge Diagnoses: Acute on chronic diastolic heart failure Chest pain, stable angina, neg stress test h/o CAD (coronary artery disease)w/ Stented coronary artery HTN (hypertension) HLD (hyperlipidemia) tobacco use: counseling done to quit h/o Medical non-compliance: counseling done Disposition: DC-01 TO HOME OR SELFCARE Time spent for discharge: 33 minutes Core Measure Documentation - Palliative Care Palliative Care/ Comfort Measures: Not Applicable - Core Measures Any of the following diagnoses?: heart failure - VTE Discharge Requirements Deep Vein Thrombosis/Pulmonary Embolism Present on Admission: No Has pt received <5 days of overlap therapy or INR<2.0: No Anticoagulant overlap therapy prescribed at discharge: No Contraindication No Overlap Therapy order at DC: Not Indicated - Heart Failure Discharge Requirements MIC/ARB for LVSD if EF <40%: Yes Beta pankaj at discharge: Yes Exam - Physical Exam Narrative exam: Gen: WDWN, NAD, Awake, Alert, Orientated HEENT: NCAT, EOMI, PERRL, OP Clear Neck: supple, no adenopathy, no thyromegaly, no JVD CVS/Heart: RRR, normal S1S2, pulses present bilaterally Chest/Lungs: CTA B, Symmetrical chest expansion, good air entry bilaterally GI/Abdomen: soft, NTND, good bowel sounds, no guarding or rebound /Bladder: no suprapubic tenderness, no CVA or paraspinal tenderness Extermity/Skin: no c/c/e, no obvious rash MSK: FROM x 4 Neuro: CN 2-12 grossly intact, no new focal deficits Psych: calm - Constitutional Vitals: Temp Pulse Resp BP Pulse Ox 98.1 F 55 L 16 137/90 100 04/29/19 04:39 04/29/19 10:00 04/29/19 04:39 04/29/19 09:52 04/29/19 09:52 Plan Activity: other (no strenous activity unless cleared by Cardiology) Diet: low salt Special Instructions: record daily BP diary, record blood sugar diary, smoking cessation Follow up with: CORNELIA TOBIAS MD [Primary Care Provider] - 3-5 Days WANDER NINA MD [Staff Physician] - 7 Days Prescriptions: AtorvaSTATin [Lipitor] 40 mg PO QHS #30 tablet Aspirin [Aspirin BABY CHEW TAB] 81 mg PO QDAY #30 tab.chew Carvedilol [Coreg] 3.125 mg PO BID #60 tablet Nicotine [Habitrol] 14 mg TD QDAY #14 patch Furosemide [Lasix TAB] 20 mg PO BID #60 tablet Nitroglycerin [Nitrostat] 0.4 mg SL Q5M PRN #15 tablet PRN Reason: Chest Pain amLODIPine [Norvasc] 5 mg PO QDAY #30 tablet Clopidogrel [Plavix] 75 mg PO QDAY #30 tablet ALBUTEROL Inhaler (OR & NICU) [ProAir HFA Inhaler] 2 puff IH QID PRN #1 inhalation PRN Reason: Shortness Of Breath Lisinopril [Zestril TAB] 10 mg PO BID #60 tablet
--- NOTE | 2019-04-29 15:02 | Progress Note ---
Assessment and Plan Echo reviewed - EF 40-45%. Currently stable cardiac status. Pt may discharge home from cardiology standpoint on current cardiac regimen. Recommend pt follow up in our office with Dr. Santana within 1-2 weeks of hospital discharge ([phone]). The patient has been seen in conjunction with Dr. Arleen Danielson who agrees with the assessment and plan of care. - Patient Problems (1) Chest pain Current Visit: Yes Status: Acute (2) CAD (coronary artery disease) Current Visit: Yes Status: Chronic Qualifiers: Associated angina: with stable angina (3) Stented coronary artery Current Visit: Yes Status: Chronic (4) HTN (hypertension) Current Visit: Yes Status: Chronic Qualifiers: Hypertension type: essential hypertension Qualified Code(s): I10 - Essential (primary) hypertension (5) HLD (hyperlipidemia) Current Visit: Yes Status: Chronic Qualifiers: Hyperlipidemia type: mixed hyperlipidemia Qualified Code(s): E78.2 - Mixed hyperlipidemia (6) Tobacco use Current Visit: Yes Status: Chronic (7) Medical non-compliance Current Visit: Yes Status: Chronic Subjective Date of service: 04/29/19 Principal diagnosis: cp Interval history: pt resting in bed, no current cardiac complaints. Objective Vital Signs Temp Pulse Resp Resp BP Pulse Ox 04/29/19 10:00 55 L 04/29/19 09:52 66 137/90 100 04/29/19 09:51 63 137/90 04/29/19 09:50 62 137/90 04/29/19 09:34 100 04/29/19 04:39 98.1 F 58 L 16 139/88 99 04/29/19 00:21 98.7 F 54 L 16 145/87 99 04/28/19 21:57 18 04/28/19 21:27 18 04/28/19 21:26 64 130/82 04/28/19 20:53 16 04/28/19 20:40 16 98 04/28/19 19:51 57 L 04/28/19 19:50 98.7 F 57 L 16 135/79 98 04/28/19 16:20 98.3 F 61 18 161/87 97 04/28/19 16:14 142/72 - Physical Examination HEENT: Positive: PERRL, Normocephaly, Mucus Membranes Moist Neck: Positive: neck supple, trachea midline Cardiac: Positive: Reg Rate and Rhythm, S1/S2 Lungs: Positive: clear to auscultation Neuro: Positive: Grossly Intact Abdomen: Positive: Soft. Negative: Tender Skin: Negative: Rash, Wound Musculoskeletal: No Pain Extremities: Absent: edema - Imaging and Cardiology EKG: report reviewed, image reviewed Echo: report reviewed (07/11/2018 showed EF 50-55%, mild LVH, impaired relaxation.) Cardiac cath: report reviewed ([facility] on 07/11/2018 with PCI of OM2 with DENISE, left main patent, LAD prox 40%, RCA ectatic, large patent PLV 40%, normal LV function. ) - EKG Sinus rhythms and dysrhythmias: sinus rhythm
== END 2019-04-29 15:05 | disposition home or self-care (01) | DRG 302 ==
LOC: ED 08:40 → 4A 14:32
PROVIDERS: ADMIT Internal Medicine; ATTEND Internal Medicine
DX: I25.118 Atherosclerotic heart disease of native coronary artery with other forms of angina pectoris (principal); I50.33 Acute on chronic diastolic (congestive) heart failure; R07.9 Chest pain, unspecified; I11.0 Hypertensive heart disease with heart failure; E78.00 Pure hypercholesterolemia, unspecified; F17.290 Nicotine dependence, other tobacco product, uncomplicated; E78.2 Mixed hyperlipidemia; I16.0 Hypertensive urgency; F12.90 Cannabis use, unspecified, uncomplicated; I25.2 Old myocardial infarction; Z95.5 Presence of coronary angioplasty implant and graft; Z82.49 Family history of ischemic heart disease and other diseases of the circulatory system; Z79.51 Long term (current) use of inhaled steroids; Z79.899 Other long term (current) drug therapy; Z91.14 Patient's other noncompliance with medication regimen; Z72.89 Other problems related to lifestyle
CPT/HCPCS: 36415; 70450; 71045; 71275; 78452; 80048; 83880; 84484; 85025; 93005; 93010; 93017; 93306; G0378; A9270-GY; A9502; J1940; J2270; J2405; J2785; J3010; Q9967